=== PATIENT | female | born 1970 | race Caucasian/White ===

== ENCOUNTER → 2017-03-09 | Day surgery (SDC) | payer MEDICARE, MEDICAID ==
[~2017-03-09] MED LIST: Lactated Ringers 1,000 ML IV SCH; Propofol 200 MG/20 ML SDV IV ONE
[2017-03-09 12:59] VITALS: BP 137/86
--- NOTE | 2017-03-12 07:47 | OR ---
DATE OF OPERATION: 03/09/2017 PREOPERATIVE DIAGNOSIS: CRICOPHARYNGEAL DYSPHAGIA, GASTROESOPHAGEAL REFLUX DISEASE. POSTOPERATIVE DIAGNOSIS: CRICOPHARYNGEAL DYSPHAGIA, GASTROESOPHAGEAL REFLUX DISEASE. SURGEON: Fabio Altamirano MD PROCEDURE: EGD WITH BIOPSIES X3, LYNSEY. ANESTHESIA: [employer] due to chronic GERD AND mental handicap. COMPLICATIONS: None. SPECIMEN: 1. Duodenal biopsy x1. 2. Antral biopsy x2. 3. LYNSEY. FINDINGS: 1. Full-length EGD. 2. Mild villous atrophy duodenal bulb. 3. Mild chronic antral gastritis. 4. Spontaneous gastroesophageal reflux disease without hernia or esophagitis. RECOMMENDATIONS: Medical followup with Dr. Warner. INDICATIONS: The patient has apparently been having some issues with reflux and occasional difficulty swallowing food and pills. Dr. Warner sent her for EGD. This dysphagia appears to be in the pharyngeal area. DESCRIPTION OF PROCEDURE: The patient was prepped and draped, placed in left lateral decubitus position. A lubricated Olympus gastroscope was inserted over a bit and advanced to the cricopharyngeus area. No gross abnormalities were seen and no obstructive processes. The scope was easily intubated in the esophagus. Esophageal lining was benign in its entire course. The Z-line was crisp and sharp around 35 cm. No hiatal hernia was present. There was significant amount of spontaneous reflux, but no distal esophagitis, stricturing, ulceration, or Carter's changes. The scope was intubated and advanced into the stomach through the pylorus into the third portion of duodenum. The second and third portion of the duodenum appeared benign. There was a little bit of villous atrophy in the duodenal bulb and a biopsy was taken. The scope was brought back into the stomach and retroflexed. The upper fundus and cardia were completely unremarkable. In the most distal portion of the fundus upon direct exam and extending into the antrum, there was some very mild and chronic appearing gastritis. Two biopsies were taken along with a LYNSEY. Air was then suctioned, scope removed without complication. KARIE/SERGIO /[id number]
== END ==
LOC: CC.SDS 11:31
PROVIDERS: ATTEND Family Medicine
DX: K29.50 Unspecified chronic gastritis without bleeding (principal); B96.81 Helicobacter pylori [H. pylori] as the cause of diseases classified elsewhere; R13.14 Dysphagia, pharyngoesophageal phase; K21.9 Gastro-esophageal reflux disease without esophagitis; Z88.8 Allergy status to other drugs, medicaments and biological substances; Z79.82 Long term (current) use of aspirin; Z79.899 Other long term (current) drug therapy
CPT/HCPCS: 36415; 43239; 84703; 87081; J2704; J7120; 00740; 88305

== ENCOUNTER 2019-05-27 16:01 | Observation (INO) | payer MEDICARE, MEDICAID ==
[2019-05-27] MEDS ORDERED: Sodium Chloride 0.9% 10 ML Syringe FLUSH PRN (16:43)
[2019-05-27 17:18] LABS: CHLORIDE,CL 106 mEq/L (98-106); SODIUM,NA 145 mEq/L (136-145)
[2019-05-27] MEDS ORDERED: cefTRIAXone 1 GM Vial IVPUSH SCH (17:30)
[2019-05-27] MEDS ORDERED: Metoprolol Tartrate 25 MG Tab PO SCH ×2 (17:45→18:00)
[2019-05-27] MEDS ORDERED: Azithromycin 500 MG in Sodium Chloride 0.9% 250 ML IV SCH (18:00)
[2019-05-27] MEDS ORDERED: Metoprolol Tartrate 50 MG Tab ONE (18:13)
[2019-05-27] MEDS: Metoprolol Tartrate 25 MG Tab PO SCH (19:31)
[2019-05-27] MEDS: Gemfibrozil 600 MG Tab PO SCH (19:54)
[2019-05-27] MEDS ORDERED: Mirtazapine 15 MG Tab PO SCH (20:00)
[2019-05-27] MEDS ORDERED: Citalopram 10 MG Tab PO SCH (20:00)
[2019-05-27] MEDS ORDERED: Melatonin 3 MG Tab PO SCH (20:00)
[2019-05-28] MEDS: Metoprolol Tartrate 25 MG Tab PO SCH (07:44)
[2019-05-28] MEDS: Gemfibrozil 600 MG Tab PO SCH (07:46)
[2019-05-28] MEDS ORDERED: Polyvinyl Alcohol 1.4% Ophth Soln 15 ML Bottle EYEBOTH SCH (08:00)
[2019-05-28] MEDS ORDERED: Aspirin 325 MG Tab PO SCH (08:00)
[2019-05-28] MEDS ORDERED: Iopamidol 755 Mg/ML 100 ML Bottle IVPUSH ONE (08:12)
[2019-05-28] MEDS ORDERED: Albuterol/Ipratropium 3.0-0.5 MG/3 ML Neb Soln NEB SCH (12:00)
[2019-05-28 13:06] VITALS: BP 95/71; PULSE 86
--- NOTE | 2019-05-28 18:34 | PCM.DCSUM1 ---
Discharge Summary - Hospital Course Free Text/Narrative:: Patient presented to the clinic in [place] with increased cough and chest congestion. Was noted to have tachycardia, EKG done which showed atrial fib/ flutter with RVR with a rate of 150s-160s. No previous history of abnormal rhythm. Sent to [place] with [address] [place] [address] staff for admission and further work up. Chest xray was done, showed questionable infiltrate in right mid lobe. Mild venous congestion. WBC normal. Started on IV Zithromax, Rocephin. Started on Metoprolol for rate control. - Discharge Data Discharge Date: 05/28/19 Discharge Disposition: DC/Tfer to Acute Hospital 02 Condition: Fair - Patient Summary/Data Complications: none Hospital Course: Patient alert, appears more short of breath this am. Lung sounds note rhonchi/ rales in the bases. Did have to start oxygen last evening. ProBNP noted to be elevated. D-Dimer elevated. CTA of chest was done, echo done this am. Telemetry continues to show atrial fib, rate improved in to the 90s. Received report from radiology. Noted to have right upper lobe atelectasis likely caused by mucous plug or obstructive mass. Did notify sister. Contacted [facility] and spoke with hospitalist in regards to potential need for bronchoscopy/pulmonology care. Agreed to accept the patient in transfer. - Discharge Plan Home Medications: Home Meds Aspirin 325 mg PO DAILY 02/25/14 [History] Mirtazapine [Remeron] 30 mg PO BEDTIME 02/25/14 [History] Escitalopram [Lexapro] 20 mg PO BEDTIME 02/14/17 [History] Melatonin [Melatin] 3 mg PO BEDTIME 02/14/17 [History] Calcium Carbonate/Vitamin D3 [Caltrate 600 + D Soft Chew Tab] 1 each PO BID 04/09 [History] Cetirizine [ZyrTEC] 10 mg PO DAILY 05/27/19 [History] Dextran 70/Hypromellose/PF [Artificial Tears Drops] 1 each OP BID 05/27/19 [ History] Gemfibrozil [Lopid] 600 mg PO BID 05/27/19 [History] - Discharge Summary/Plan Comment DC Time >30 min.: Yes Discharge Summary/Plan Comment: Transfer to [facility]. Time for evaluation/ consult with family 15 minutes Time to arrange transfer 20 minutes Time for documentation 10 minutes - General Info Date of Service: 05/28/19 Admission Dx/Problem (Free Text: Right Upper Lobe Atelectasis Functional Status: Reports: Pain Controlled, Tolerating Diet, Ambulating - Review of Systems General: Reports: Weakness, Fatigue. Denies: Fever HEENT: Reports: No Symptoms Pulmonary: Reports: Shortness of Breath, Cough Cardiovascular: Denies: Chest Pain, Edema, Lightheadedness Gastrointestinal: Denies: Abdominal Pain, Nausea, Vomiting Genitourinary: Reports: No Symptoms Musculoskeletal: Reports: No Symptoms Skin: Reports: No Symptoms Neurological: Reports: No Symptoms - Patient Data Vitals - Most Recent: Last Vital Signs Temp 95.8 F 05/28/19 11:30 Pulse 86 05/28/19 11:30 Resp 20 05/28/19 11:30 BP 95/71 05/28/19 11:30 Pulse Ox 95 05/28/19 11:30 Weight - Most Recent: 135 lb Lab Results - Last 24 hrs: Laboratory Results - last 24 hr 05/27/19 05/28/19 Range/Units 20:05 07:00 Troponin I 0.089 H 0.048 (0.00-0.06) ng/mL Med Orders - Current: Current Medications Discontinued Medications Albuterol/Ipratropium (Duoneb 3.0-0.5 Mg/3 Ml) 3 ml NEB QIDRT [facility] Last Admin: 05/28/19 11:35 Dose: 3 ml Artificial Tears (Liquitears 1.4% Ophth Soln) 0 ml EYEBOTH DAILY [facility] Last Admin: 05/28/19 07:45 Dose: 1 drop Aspirin (Aspirin) 325 mg PO DAILY [facility] Last Admin: 05/28/19 07:45 Dose: 325 mg Ceftriaxone Sodium (Rocephin) 1 gm IVPUSH Q24H [facility] Last Admin: 05/27/19 18:12 Dose: 1 gm Citalopram Hydrobromide (Celexa) 20 mg PO BEDTIME [facility] Last Admin: 05/27/19 19:54 Dose: Not Given Gemfibrozil (Lopid) 600 mg PO BID [facility] Last Admin: 05/28/19 07:46 Dose: Not Given Azithromycin 500 mg/ Sodium (Chloride) 250 mls @ 250 mls/hr IV Q24H [facility] Last Admin: 05/27/19 18:53 Dose: 250 mls/hr Iopamidol (Isovue-370 (76%)) 100 ml IVPUSH ONETIME ONE Stop: 05/28/19 08:13 Melatonin (Melatonin) 3 mg PO BEDTIME [facility] Last Admin: 05/27/19 19:54 Dose: Not Given Metoprolol Tartrate (Lopressor) 25 mg PO Q12H [facility] Metoprolol Tartrate (Lopressor) 50 mg PO Q12H [facility] Last Admin: 05/27/19 18:21 Dose: Not Given Metoprolol Tartrate (Lopressor) Confirm Administered Dose 50 mg .ROUTE .STK-MED ONE Stop: 05/27/19 18:14 Last Admin: 05/27/19 18:15 Dose: 50 mg Metoprolol Tartrate (Lopressor) 50 mg PO Q12H [facility] Last Admin: 05/28/19 07:44 Dose: 50 mg Mirtazapine (Remeron) 30 mg PO BEDTIME [facility] Last Admin: 05/27/19 19:54 Dose: Not Given Sodium Chloride (Saline Flush) 10 ml FLUSH ASDIRECTED PRN PRN Reason: Keep Vein Open - Exam Quality Assessment: Reports: Supplemental Oxygen General: Reports: Alert, Cooperative HEENT: Reports: Mucous Membr. Moist/[place] Neck: Reports: Supple Lungs: Reports: Decreased Breath Sounds, Rales, Rhonchi Cardiovascular: Reports: Irregular Rhythm GI/Abdominal Exam: Normal Bowel Sounds, Soft, Non-Tender Extremities: Normal Inspection, No Pedal Edema Skin: Reports: Warm, Dry Neurological: Reports: No New Focal Deficit
== END 2019-05-28 12:30 ==
LOC: UNDOADMOB 16:01 → CC.MS 16:01
PROVIDERS: ADMIT Physician Assistant Medical; ATTEND Family Medicine
DX: I48.91 Unspecified atrial fibrillation (principal); J98.11 Atelectasis; Z88.8 Allergy status to other drugs, medicaments and biological substances; Z79.82 Long term (current) use of aspirin; Z79.899 Other long term (current) drug therapy; R06.02 Shortness of breath
CPT/HCPCS: 36415; 71046; 71275; 80048; 83880; 84484; 85025; 85379; 86140; 93005; 93306; 94640; 96374; 96375; 99217; 99220; A9270; G0378; J0456; J0696; J7050; 93010; J7620-GY